=== PATIENT | female | born 1970 | race Two or more races ===

== ENCOUNTER 2019-03-03 13:39 | Emergency (ER) | payer MEDICAID, SELFPAY ==
[~2019-03-03] VITALS: Ht 154.9 cm; Wt 67.0 kg
[2019-03-03 13:44] VITALS: BP 163/92
== END 2019-03-03 15:02 | disposition home or self-care (01) ==
LOC: ED 14:34
DX: H10.021 Other mucopurulent conjunctivitis, right eye (principal); E11.9 Type 2 diabetes mellitus without complications
CPT/HCPCS: 99283

== ENCOUNTER 2019-03-05 10:31 | Emergency (ER) | payer MEDICAID, OTHER ==
[~2019-03-05] VITALS: Ht 162.6 cm; Wt 66.7 kg
[2019-03-05 10:35] VITALS: BP 155/91
[2019-03-05] MEDS ORDERED: FLUORESCEIN OPHTHALMIC 1 MG STRIP ONE (10:51)
[2019-03-05] MEDS ORDERED: PROPARACAINE OPHTH 0.5%, 15ML ONE (10:51)
--- NOTE | 2019-03-05 10:53 | NUR ---
PT HAS CO OF EYE PAIN IN RIGHT EYE. PT WAS RECENTLY HERE FOR EYE INFECTION ON SUNDAY AND WAS GIVEN ANTIBIOTICS. PAIN GOT WORSE THIS AM. PATIENT IS BLIND IN RIGHT EYE
--- NOTE | 2019-03-05 12:17 | NUR ---
Patient/Caregiver given discharge instructions and they have confirmed that they understand the instructions. Patient ambulatory with steady gait.
== END 2019-03-05 12:27 | disposition home or self-care (01) ==
LOC: ED 10:54
DX: H10.31 Unspecified acute conjunctivitis, right eye (principal); H40.211 Acute angle-closure glaucoma, right eye; R11.10 Vomiting, unspecified; E11.9 Type 2 diabetes mellitus without complications
CPT/HCPCS: 99283